=== PATIENT | male | born 1950 | race Caucasian/White ===

== ENCOUNTER 2019-08-20 12:20 | Emergency (ER) | payer OTHER ==
[2019-08-20 12:45] VITALS: BP 105/68; PULSE 75; TEMP 97.8; BMI 25.4
[2019-08-20 14:06] LABS: BASO % 0.9 % (0-2.0); EOS % 3.4 % (0-4.5); HEMATOCRIT 46.3 % (35.4-49); LYMPH % 12.8 % (8-40); MCH 30.5 pg (25.7-33.7); MCHC 34.7 g/dl (32.0-35.9); MEAN PLT VOLUME 9.4 fl (7.5-11.1); MONO % 7.5 % (3.8-10.2); NEUT % 75.4 % (42.8-82.8); PLATELET COUNT 261 K/MM3 (134-434); RBC 5.26 M/mm3 (4.00-5.60); RDW 12.7 % (11.9-15.9)
[2019-08-20 14:14] LABS: ALBUMIN 4.3 g/dl (3.4-5.0); BILIRUBIN,TOTAL 1.2 mg/dl (0.2-1); CALCIUM 9.4 mg/dl (8.5-10); CREATININE 1.5 mg/dl (0.55-1.3); POTASSIUM 3.4 mmol/L (3.5-5.1); TOT PROT 7.5 g/dl (6.4-8.2)
[2019-08-20] MEDS ORDERED: SODIUM CHLORIDE 0.9% 1000 ML INFUS.BAG IV ONE (14:43)
== END 2019-08-20 17:23 | disposition home or self-care (01) ==
LOC: FER 12:20
DX: K40.90 Unilateral inguinal hernia, without obstruction or gangrene, not specified as recurrent (principal); K59.00 Constipation, unspecified
CPT/HCPCS: 36415; 72100-TC-FY; 74177-TC; 80053; 81003; 83690; 85025; 99285-25

== ENCOUNTER 2019-09-19 10:31 | Day surgery (SDC) | payer OTHER ==
[2019-09-19 10:59] VITALS: BMI 25.4
[2019-09-19] MEDS ORDERED: ONDANSETRON 4 MG/2 ML VIAL IVPUSH PRN (11:18)
[2019-09-19] MEDS ORDERED: oxyCODONE HCL 5 MG TABLET PO PRN (11:18)
[2019-09-19] MEDS ORDERED: PROMETHAZINE HCL 25 MG/1 ML VIAL IVPB PRN (11:18)
[2019-09-19] MEDS ORDERED: LIDOCAINE HCL 1%, 10 MG/ML (20ML VIAL) ONE (11:19)
[2019-09-19] MEDS ORDERED: BENZOIN/ALOE VERA/STORAX/TOLU 58 ML BOTTLE ONE (11:19)
[2019-09-19] MEDS ORDERED: LACTATED RINGERS SOLUTION 1,000 ML IV SCH (11:30)
--- NOTE | 2019-09-19 11:59 | HP ---
History & Physical Update - History History: No Change - Physical Physical: No Change - Assessment Assessment: No Change - Plan Plan: No Change (Complete H&P is located in his paper chart and will be scanned into his [facility]. No new medications or complaints.)
[2019-09-19] MEDS ORDERED: PROPOFOL 20 ML ONE (12:09)
[2019-09-19] MEDS ORDERED: MIDAZOLAM HCL 2 MG/2 ML SINGLE DOSE VIAL ONE (12:09)
[2019-09-19] MEDS ORDERED: LIDOCAINE HCL/PF 2% SDV 5ML VIAL ONE (12:20)
[2019-09-19] MEDS ORDERED: ceFAZolin SODIUM 1 GM VIAL ONE (12:24)
[2019-09-19] MEDS ORDERED: SODIUM CHLORIDE 0.9% P/F 10 ML VIAL IJ ONE (12:24)
[2019-09-19] MEDS ORDERED: ceFAZolin SODIUM 1 GM VIAL IVPB ONE (12:26)
[2019-09-19] MEDS ORDERED: DEXAMETHASONE SOD PHOSPHATE 4 MG/1 ML VIAL ONE (12:29)
[2019-09-19] MEDS ORDERED: KETOROLAC TROMETHAMINE 30 MG/1 ML VIAL ONE (12:29)
[2019-09-19] MEDS ORDERED: BUPIVACAINE HCL/PF 0.5% (5 MG/ML) 30 ML VIAL IJ ONE ×2 (12:29)
[2019-09-19] MEDS ORDERED: LIDOCAINE HCL 1%, 10 MG/ML (20ML VIAL) INF ONE ×2 (12:29)
--- NOTE | 2019-09-19 13:21 | OP ---
Operative Note - Note: Operative Date: 09/19/19 Pre-Operative Diagnosis: left inguinal hernia Operation: repair left inguinal hernia w/mesh Findings: indirect LIH w/omentum and large lipoma of the cord Post-Operative Diagnosis: Same as Pre-op Surgeon: Shai Hernandez Criminal Investigator Customs: Addy Bartholomew Anesthesiologist/DIRECTOR CLIENT: Shin Tamez Anesthesia: General Specimens Removed: sac and lipoma Estimated Blood Loss (mls): 10
--- NOTE | 2019-09-19 13:46 | SURG ---
Surgery Instrumental Teacher Note Instrumental Teacher: Addy Bartholomew PA-C Date of Service: 09/19/19 Diagnosis: left inguinal hernia Procedure: repair left inguinal hernia w/mesh I was present for the entirety of the operative procedure. For further detail, josh hamilton refer to operative report. Visit type - Case Type Case Type: Scheduled - New patient This patient is new to me today: Yes Date on this admission: 09/19/19
[2019-09-19] MEDS ORDERED: ACETAMINOPHEN 1000 MG/100 ML VIAL (NON FORMULARY) IVPB ONE (13:47)
[2019-09-19] MEDS ORDERED: ACETAMINOPHEN INJECTION 100 ML IVPB ONE (14:07)
[2019-09-19 15:46] VITALS: BP 127/73; PULSE 79; TEMP 97.7
--- NOTE | 2019-09-21 18:01 | PATH ---
Surgical Pathology Report Patient Name: CARMEL DOZIER [facility]. Rec. #: [id number] /Age/Gender: 1950 (Age: 69) / M Account: [id number] Location: [facility] Taken: 09/19/2019 Received: 09/20/2019 Reported: 09/21/2019 Physicians: Shai Hernandez MD Specimen(s) Received HERNIA SAC AND LIPOMA Clinical History Left inguinal hernia Final Diagnosis HERNIA SAC AND LIPOMA, LEFT, INGUINAL REPAIR: HERNIA SAC AND BENIGN FIBROADIPOSE TISSUE CONSISTENT WITH LIPOMA. Electronically Signed Dorothy Figueroa M.D. Gross Description Received in formalin labeled "hernia sac and lipoma" is an aggregate of soft tissue comprised of a alfredo fibromembranous and associated fibroadipose tissue measuring 7 x 7 x 3 cm in aggregate. Rn Flight sections are submitted in one cassette.
--- NOTE | 2019-09-21 20:20 | OP ---
DATE OF OPERATION: 09/19/2019 PREOPERATIVE DIAGNOSIS: Left inguinal hernia. POSTOPERATIVE DIAGNOSIS: Left inguinal hernia. PROCEDURE: Repair of left inguinal hernia with Parietex ProGrip mesh. SURGEON: Shai Hernandez MD. CELL PHONE REPAIR TECHNICIAN: Addy Bartholomew PA-C. ANESTHESIA: General. OPERATIVE FINDINGS: There was a large indirect left inguinal hernia containing omentum and a large lipoma of the cord, and attenuated floor of the inguinal canal. The rest of the findings were unremarkable. PROCEDURE: The patient was placed on the operating room table in the supine position. After induction of general anesthesia, the patient's abdomen was prepped with ChloraPrep and draped in sterile fashion. A timeout was taken. A transverse groin incision mapped out, and then the area infiltrated with 1% Xylocaine, 0.5% Marcaine in equal concentration. Incision was made with scalpel and taken down through skin and subcutaneous fat and Aramis fascia. The external oblique fascia was identified and incised proximally and distally through the external ring in the direction of its fibers. The cord structures and nerve were elevated to the level of the pubic tubercle, and a Milan drain placed around them for retraction and identification purposes. The previously noted findings were observed, and dissection of the sac from the cord was carried out using cautery and blunt dissection. The sac was opened and the omentum reduced into the peritoneal cavity, and high ligation of the sac carried out using 2-0 Vicryl suture. The redundant sac was excised and sent for pathological examination. A lipoma of the cord was mobilized and clamped at its base and excised and sent for pathological examination as well The base was ligated with 2-0 Vicryl suture. The floor of the inguinal canal was then repaired using a custom cut piece of Parietex ProGrip mesh, which was anchored to the pubic tubercle, shelving edge, and conjoined tendon respectively with interrupted 2-0 Prolene. A keyhole was created for the cord structures, and the tails of mesh brought above the level of the internal ring and crossed where they were anchored with 2-0 Prolene. Hemostasis was checked and noted to be good, and then the wound was copiously irrigated with sterile saline. Hemostasis was verified again, and then the cord structures and nerve returned to the normal anatomic position. The external oblique fascia was then closed over the cord structures using continuous 2-0 Vicryl, recreating the external ring. Aramis fascia was similarly reapproximated interrupted 2-0 Vicryl, the deep dermis with interrupted 3-0 Vicryl, and the skin edges with 4-0 Monocryl in a subcuticular continuous fashion. Steri-Strips and dry sterile dressings were placed. The procedure terminated at this point. The patient aroused from general anesthesia and transferred to the post anesthesia care unit in stable condition awake and alert. ESTIMATED BLOOD LOSS: 10 mL. REPLACEMENTS: Crystalloid. DRAINS: None. SPECIMEN: Lipoma of the cord and sac to pathology. I, Shai Hernandez, was physically present in the operating room from the time the patient was placed on the operating room table until he was transferred to the postanesthesia care unit in my accompaniment. MD ZINA [id number] MTDD
== END 2019-09-19 15:40 | disposition home or self-care (01) ==
LOC: JASU-SURG 10:31
PROVIDERS: ATTEND Surgery
PROC: 0YU60JZ Supplement Left Inguinal Region with Synthetic Substitute, Open Approach (ICD-10-PCS; principal; 2019-09-19 12:00)
DX: K40.90 Unilateral inguinal hernia, without obstruction or gangrene, not specified as recurrent (principal)
CPT/HCPCS: 88302-TC; 94760; J0131

== ENCOUNTER 2020-07-03 04:07 | Day surgery (SDC) | payer OTHER ==
[2020-06-28 16:32] VITALS: BMI 25.2
[~2020-07-03 04:07] MED LIST: BUPIVACAINE HCL/PF 0.5% (5MG/ML) 10 ML VIAL NR ONE; LIDOCAINE HCL 1%, 10 MG/ML (20ML VIAL) NR ONE; ceFAZolin SODIUM 1 GM VIAL IVPB ONE
[2020-07-03] MEDS ORDERED: DEXAMETHASONE SOD PHOSPHATE/PF 10 MG/ML SDV ONE (08:38)
[2020-07-03] MEDS ORDERED: ceFAZolin SODIUM 1 GM VIAL ONE (09:04)
[2020-07-03] MEDS ORDERED: MIDAZOLAM HCL 2 MG/2 ML SINGLE DOSE VIAL ONE ×3 (09:04→09:59)
[2020-07-03] MEDS ORDERED: DEXAMETHASONE SOD PHOSPHATE 4 MG/1 ML VIAL ONE (09:04)
[2020-07-03] MEDS ORDERED: PROPOFOL 20 ML ONE ×2 (09:04)
[2020-07-03] MEDS ORDERED: LIDOCAINE HCL 1%, 10 MG/ML (20ML VIAL) ONE (10:01)
[2020-07-03] MEDS ORDERED: BUPIVACAINE HCL/PF 0.5% (5MG/ML) 10 ML VIAL ONE (10:02)
[2020-07-03] MEDS ORDERED: ROCURONIUM BROMIDE 50 MG/5 ML SYRINGE ONE (10:14)
[2020-07-03] MEDS ORDERED: SUCCINYLCHOLINE CHLORIDE 200 MG/10 ML SYRINGE ONE (10:16)
[2020-07-03] MEDS ORDERED: ceFAZolin SODIUM 1 GM VIAL IVPB ONE (10:40)
[2020-07-03] MEDS ORDERED: LIDOCAINE HCL 1%, 10 MG/ML (20ML VIAL) NR ONE (11:46)
[2020-07-03] MEDS ORDERED: BUPIVACAINE HCL/PF 0.5% (5MG/ML) 10 ML VIAL NR ONE (11:46)
[2020-07-03] MEDS ORDERED: ONDANSETRON 4 MG/2 ML VIAL IVPUSH PRN (12:32)
[2020-07-03] MEDS ORDERED: oxyCODONE HCL 5 MG TABLET PO PRN (12:32)
[2020-07-03] MEDS ORDERED: PROMETHAZINE HCL 25 MG/1 ML VIAL IVPB PRN (12:32)
[2020-07-03 14:49] VITALS: BP 141/86; PULSE 83; TEMP 96.6
== END 2020-07-03 15:07 | disposition home or self-care (01) ==
LOC: JASU-SURG 04:07
PROVIDERS: ATTEND Surgery
PROC: 0YU50JZ Supplement Right Inguinal Region with Synthetic Substitute, Open Approach (ICD-10-PCS; principal; 2020-07-03 10:00)
DX: K40.90 Unilateral inguinal hernia, without obstruction or gangrene, not specified as recurrent (principal)
CPT/HCPCS: 86850; 86900; 86901; 88302-TC; 94760